=== PATIENT | male | born 1995 | race American Indian/Alaskan Native ===

== ENCOUNTER 2017-06-20 13:30 | Emergency (ER) | payer OTHER ==
[2017-06-20 13:49] VITALS: BP 104/88
[2017-06-20] MEDS ORDERED: FLEXERIL PO ONE (15:39)
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
== END 2017-06-20 16:26 | disposition home or self-care (01) ==
LOC: ED 13:30
DX: M62.838 Other muscle spasm (principal)
CPT/HCPCS: 99282